=== PATIENT | female | born 1990 | race Caucasian/White ===

== ENCOUNTER 2022-05-14 11:22 | Emergency (ER) | payer OTHER | END 2022-05-14 13:40 | disposition home or self-care (01) | LOC: JD.ED 11:22 | DX: S20.211A Contusion of right front wall of thorax, initial encounter (principal); S70.12XA Contusion of left thigh, initial encounter; S70.11XA Contusion of right thigh, initial encounter; S40.022A Contusion of left upper arm, initial encounter; S01.512A Laceration without foreign body of oral cavity, initial encounter; V89.2XXA Person injured in unspecified motor-vehicle accident, traffic, initial encounter | CPT/HCPCS: 71045; 71045-26; 99283 ==

== ENCOUNTER 2022-05-22 13:13 | Emergency (ER) | payer OTHER ==
[2022-05-22] MEDS ORDERED: Ketorolac 15 MG/ML SDV IM STA (16:42)
== END 2022-05-22 17:23 | disposition home or self-care (01) ==
LOC: JD.ED 13:13
DX: S70.12XA Contusion of left thigh, initial encounter (principal); Z79.899 Other long term (current) drug therapy; Z86.16 Personal history of COVID-19; V89.2XXA Person injured in unspecified motor-vehicle accident, traffic, initial encounter; Y92.410 Unspecified street and highway as the place of occurrence of the external cause
CPT/HCPCS: 96372; 99283; J1885; 99282